=== PATIENT | male | born 1990 | race Two or more races ===

== ENCOUNTER 2022-07-26 18:28 | Emergency (ER) | payer MEDICAID, OTHER ==
[~2022-07-26] VITALS: Ht 180.3 cm; Wt 86.0 kg
[2022-07-26 18:30] VITALS: BP 115/76
[2022-07-26] MEDS ORDERED: TETANUS-DIPTH-ACEL PERTUSSIS 0.5ML SYR Tdap IM ONE (19:15)
== END 2022-07-26 21:37 | disposition home or self-care (01) ==
LOC: ER 18:28
DX: S61.411A Laceration without foreign body of right hand, initial encounter (principal); W26.8XXA Contact with other sharp object(s), not elsewhere classified, initial encounter; Y93.89 Activity, other specified; Y92.89 Other specified places as the place of occurrence of the external cause; Y99.8 Other external cause status
CPT/HCPCS: 12002; 73130; 90471; 90715